=== PATIENT | female | born 1955 | race Two or more races ===

== ENCOUNTER 2017-10-01 05:50 | Day surgery (SDC) | payer OTHER ==
[~2017-10-01 05:50] MED LIST: CLONAZEPAM1 MG PO; SYNTHROID50 MCG PO; WELLBUTRIN XL300 MG PO; ZANTAC150 MG PO
[2017-10-01] MEDS ORDERED: PERCOCET 5-3251 EACH PO (08:53)
[2017-10-01] MEDS ORDERED: RECTICARE30 GM TOP (08:53)
== END 2017-10-01 13:30 | disposition home or self-care (01) ==
LOC: CIR.AMB 05:50
DX: K60.5 Anorectal fistula (principal)

== ENCOUNTER 2024-11-24 07:21 | Emergency (ER) | payer OTHER ==
[~2024-11-24] VITALS: Ht 160 cm; Wt 81.6 kg
[~2024-11-24 07:21] MED LIST changes: +PERCOCET 5-3251 EACH PO; +RECTICARE30 GM TOP
[2024-11-24] MEDS ORDERED: 0.9 % SODIUM CHLORIDE 1,000 ML IV ONE (08:45)
[2024-11-24] MEDS ORDERED: KETOROLAC TROMETHAMINE 30 MG VIAL IV ONE (08:45)
[2024-11-24] MEDS ORDERED: KETOROLAC TROMETHAMINE 30 MG VIAL ONE (09:20)
[2024-11-24 09:39] LABS: BASO % 0.5 % (0.1-1.2); EOS # 0.10 (0.04-0.54); EOS % 1.0 % (0.7-7.0); LYMPH # 2.31 (1.18-3.74); LYMPH % 22.6 % (19.3-53.1); MEAN PLATELET VOLUME 11.00 fl (9.4-12.4); MONO # 0.75 (0.24-0.82); MONO % 7.3 % (4.7-12.5); NEUT # 6.97 (1.56-6.13); NEUT % 68.3 % (34.0-71.1); RED CELL DISTRIBUTION WIDTH 13.0 % (11.6-14.4)
[2024-11-24 09:48] LABS: URINE APPEARANCE Clear; URINE BILIRRUBIN Negative (NEGATIVE); URINE BLOOD Negative; URINE COLOR Yellow; URINE GLUCOSE Negative (NEGATIVE); URINE KETONE Negative (NEGATIVE); URINE LEUKOCYTE Negative; URINE NITRATE Negative; URINE PROTEIN Negative (NEGATIVE); URINE UROBILINOGEN 0.2 E.U./dl
[2024-11-24 09:52] LABS: URINE BACTERIA 555.4 uL (0.0-1933); URINE EPITHELIAL CELLS 41.5 uL (0.0-38.8); URINE RBC 9.3 uL (0.0-20.8); URINE WBC 5.6 uL (0.0-23.2)
[2024-11-24 10:12] LABS: INR 1.06
[2024-11-24 10:22] LABS: ALT/SGPT 17.0 U/L (12-78); AST/SGOT 11.0 U/L (15-37); BILIRUBIN TOTAL 1.45 mg/dL (0.3-1.2); BUN CREA RATIO 15.0 (7.0-25.0); CREATININE SERUM 0.91 mg/dL (0.55-1.02); GFR 61.47; GLOBULINA 4.3 G/DL (2.4-3.5); GLUCOSE FASTING 96.0 mg/dL (65-100); OSMOLALITY SERUM 280.0 MOSM/KG (275-295)
[2024-11-24 10:29] LABS: URINE CAST 0.00 uL (0.0-1.40)
== END 2024-11-24 12:08 | disposition home or self-care (01) ==
LOC: ER 07:31
PROVIDERS: General Practice
DX: K62.5 Hemorrhage of anus and rectum (principal); R10.9 Unspecified abdominal pain; E03.8 Other specified hypothyroidism; E11.9 Type 2 diabetes mellitus without complications
CPT/HCPCS: 36415; 74177; 96365; 99284; J1885; J7030; Q9965